=== PATIENT | female | born 1970 | race Caucasian/White ===

== ENCOUNTER → 2018-08-04 07:30 | Outpatient (CLI) | payer OTHER ==
[~2018-08-04 07:30] MED LIST: ADDERALL 15 MG15 MG PO; ESTRACE1 MG PO; HCTZ25 MG PO; HYDROCODONE-APA1 TAB PO; K-DUR20 MEQ PO; MIRAPEX0.75 MG PO; NEXIUM40 MG; NORVASC5 MG PO; PROTONIX40 MG PO; PROZAC40 MG PO; VYVANSE40 MG PO
== END | disposition home or self-care (01) ==
LOC: D.MRI 07:30
PROVIDERS: ATTEND Orthopaedic Surgery
DX: M75.101 Unspecified rotator cuff tear or rupture of right shoulder, not specified as traumatic (principal)

== ENCOUNTER 2018-08-17 05:35 | Day surgery (SDC) | payer OTHER ==
[2018-08-11 08:56] LABS: BASOPHILS 0.4 % (0-2); EOSINOPHILS 1.7 % (0-7); HEMATOCRIT 39.6 % (36.0-48.0); HEMOGLOBIN 13.3 g/dL (12-16); MCH 31.1 pg (26.0-34.0); MCHC 33.6 g/dL (31.0-37.0); MCV 92.7 fL (80.0-100.0); MEAN PLATELET VOLUME 9.8 fL (7.4-10.4); NEUTROPHILS 46.9 % (40-80); PLATELET COUNT 305 10x3/uL (130-400); RBC 4.27 10x6/uL (4.00-5.40); RDW 13.6 % (11.5-14.5); WBC 5.4 10x3/uL (4.8-10.8)
[2018-08-11 08:57] LABS: CALCIUM 8.8 mg/dL (8.5-10.1); CARBON DIOXIDE 33.1 mmol/L (21.0-32.0); CREATININE - SERUM 0.9 mg/dL (0.6-1.3); POTASSIUM - SERUM 3.1 mmol/L (3.5-5.1)
[~2018-08-17] VITALS: Ht 172.7 cm; Wt 72.6 kg
[~2018-08-17 05:35] MED LIST changes: -NEXIUM40 MG
[2018-08-17] MEDS ORDERED: NEXIUM40 MG (06:45)
[2018-08-17 06:55] VITALS: BP 115/81; Ht 172.7 cm; Wt 72.6 kg
--- NOTE | 2018-08-17 11:20 | NUR ---
PATIENT STATES THAT NAUSEA IS ALMOST GONE, HAS DRANK APPROX 6 [place] OF [place]. LEFT WRIST PIV DC'D WITH TIP INTACT. PATIENT AMBULATES AROUND ROOM WITH SHOULDER SLING IN GOOD POSITION ON RIGHT ARM. AMBULATES WITHOUT DIZZINESS. FAMILY ASSISTS PATIENT TO DRESS IN PERSONAL CLOTHING WITH UNDERSTANDING THAT SLING MUST BE LEFT IN PLACE
--- NOTE | 2018-08-17 11:40 | NUR ---
DISCHARGE INSTRUCTIONS REVIEWED WITH PATIENT AND FAMILY. DISCHARGED HOME VIA WHEELCHAIR TO PRIVATE VEHICLE WITH DAUGHTER
== END 2018-08-17 11:40 | disposition home or self-care (01) ==
LOC: D.OPS 05:35 → D.PAN 07:30 → D.OPS 07:30
PROVIDERS: ATTEND Orthopaedic Surgery
DX: M65.811 Other synovitis and tenosynovitis, right shoulder (principal); M19.011 Primary osteoarthritis, right shoulder; M75.41 Impingement syndrome of right shoulder; M75.121 Complete rotator cuff tear or rupture of right shoulder, not specified as traumatic; Z01.812 Encounter for preprocedural laboratory examination